=== PATIENT | female | born 1990 | race Caucasian/White ===

== ENCOUNTER 2016-12-08 13:51 | Emergency (ER) | payer OTHER ==
[~2016-12-08 13:51] MED LIST: BIRTH CONTROL PILL PO; FLEXERIL10 MG PO; ORUDIS75 M1 PO; VISTARIL PO; VOLTAREN75 MG PO
== END 2016-12-08 14:00 | disposition home or self-care (01) ==
LOC: CFTX 13:51
DX: H10.9 Unspecified conjunctivitis (principal); S05.01XA Injury of conjunctiva and corneal abrasion without foreign body, right eye, initial encounter; Z88.0 Allergy status to penicillin; F17.210 Nicotine dependence, cigarettes, uncomplicated; X58.XXXA Exposure to other specified factors, initial encounter
CPT/HCPCS: 96372; 99283; J1885

== ENCOUNTER 2016-12-19 15:38 | Inpatient (IN) | payer OTHER ==
--- NOTE | ~2016-12-19 | OR ---
Unit #: [id number] #: [id number] Patient: KRISTI GARRISON [id number] [address] [place], [place] [address] [id number] I MR#: [id number] NAME: KRISTI GARRISON. ROOM: 452 Date of Procedure: 12/20/2016 Admission Date: 12/19/2016 Surgeon: Johnnie Al M.D. : 1990 Attending Physician: Johnnie Al M.D. OPERATIVE REPORT PREOPERATIVE DIAGNOSIS Right femoral neck fracture. POSTOPERATIVE DIAGNOSIS Right femoral neck fracture. PROCEDURE PERFORMED Percutaneous pinning, right femoral neck fracture. RADIOLOGY ASST None. ANESTHESIA General with LMA. COMPLICATIONS None. SPECIMENS None. DRAINS None. SURGICAL IMPLANTS Three Marita 6.5 mm stainless steel partially threaded cannulated screws. INDICATION FOR PROCEDURE Kristi is a 26-year-old female, who presented to the emergency room last night after falling and injuring her right hip. In the emergency room, x-rays were taken regarding a fracture of the femoral neck that was nondisplaced. There is about 1 mm opening on the superior side of the femoral neck, but no displacement on AP and lateral of the calcar. Based on these findings, it was felt she would benefit from percutaneous pinning of the hip. She was added on for surgery. The risks, benefits, and alternatives of surgery were discussed with the patient. Informed consent was obtained. Risks include, but not limited to, infection, bleeding, nerve injury, blood clots, risks associated with anesthesia, avascular necrosis, need for further surgery, and possibly . The patient reports a several week history of right groin and thigh pain that she attributed to sciatica. The patient denied any true injury. Unit #: [id number] #: [id number] Patient: KRISTI GARRISON DESCRIPTION OF PROCEDURE On 12/20/2016, the patient was seen in preoperative holding area, where her surgical site was marked. Preoperative antibiotics were received. H and P and consent updated. She was taken to the operating room and provided general anesthesia. She was carefully moved to the fracture table. Right leg placed carefully in the boot for traction. Fluoroscopy confirmed that the fracture was still nondisplaced. The right hip was then prepped and draped in typical sterile fashion. Time-out performed confirming the correct surgical site and procedure. At this point, a 1 inch incision was made just distal to the greater trochanter laterally. Incision was taken down through the skin and subcutaneous tissues. IT band was split. The partially threaded pin was placed along the inferior central portion of the calcar into the femoral head. Two more screws were placed both anterior and posterior to the central wire and superior creating an inverted triangle using standard AO technique. The lengths were measured followed by cannulated drill over the lateral cortex. At this point, the 3 screws were placed with the threads medial to the fracture line. Fracture remained nondisplaced. At this point, all instruments were removed. Final AP and lateral images were taken confirming appropriate reduction of fracture placement of hardware. The wound was thoroughly irrigated. Subcutaneous tissues and skin closed with 2-0 Vicryl suture. Steri-Strips, 4x4, Tegaderm were placed. The patient was subsequently awakened from general anesthesia in stable condition and taken to PACU postoperatively. POSTOPERATIVE PLAN The patient will be toe-touch weightbearing and physical therapy. She will have standard 24 hour antibiotic protocol. She will have SCDs and be on Lovenox for 2 weeks for DVT prophylaxis. No complications encountered during the surgical procedure. Dictated by... Johnnie Al M.D. EMILY/el TD: 12/21/2016 02:24 JOB #: [id number] OPERATIVE REPORT Page 1 of 1 X X PROCEDURE OPERATIVE NOTE
--- NOTE | ~2016-12-19 | CR151 ---
[facility] A Service of [facility] & [facility] RADIOLOGY TEXT RESULTS PATIENT: KRISTI GARRISON LOCATION: [place] [address]- : [birth year] UNIT #: [id number] AGE: [address]: Johnnie Al MD SEX: F ORDER DR: [id number] [facility] [address] [facility]. [place], [place] [address] [id number] I MR#: [id number] Acc #: [id number] NAME: KRISTI GARRISON. : 1990 SEX: F STUDY DATE/TIME: 12/20/2016 UNIT: [facility] ROOM: [facility] STUDY DESCRIPTION: CR Hip Min 2 Views Rt Attending Physician: Johnnie Al M.D. Ordering Physician: Johnnie Al M.D. Primary Care Physician: No Primary Care Physician MEDICAL IMAGING REPORT This report is preliminary unless electronic signature is present EXAM Right hip intraoperative views 12/20/2016 0802 hours. HISTORY 26-year-old with history of right femoral neck fracture, intraoperative views demonstrating ORIF. Fluoroscopy time 1 minute, 9 seconds. FINDINGS 2 intraoperative views; AP and lateral view of the right hip are submitted. Dose is not recorded on the image. There are 3 bone screws traversing from the lateral intertrochanteric region terminating in the femoral head with anatomic alignment. IMPRESSION Intraoperative views demonstrate placement of 3 bone screws through the proximal right femur with tips terminating in the femoral head. Fracture is in anatomic alignment. Dictated by... Josiane Kay M.D. THIS IS AN ELECTRONICALLY VERIFIED REPORT Josiane Kay M.D. at 12/20/2016 2:26 PM AFTAB/bentley TD: 12/20/2016 13:29 JOB #: [id number] MEDICAL IMAGING REPORT Page 1 of 1 COPY
--- NOTE | ~2016-12-19 | CR151 ---
[facility] A Service of [facility] & [facility] RADIOLOGY TEXT RESULTS PATIENT: KRISTI GARRISON LOCATION: [facility] [id number] : [birth year] UNIT #: [id number] AGE: [address]: Johnnie Al MD SEX: F ORDER DR: [id number] [facility] [address]. [place], [place] [address] [id number] I MR#: [id number] Acc #: [id number] NAME: KRISTI GARRISON. : 1990 SEX: F STUDY DATE/TIME: 12/19/2016 16:37 UNIT: [facility] ROOM: [facility] STUDY DESCRIPTION: CR Hip Min 2 Views Rt Attending Physician: Johnnie Al M.D. Ordering Physician: Valeriano Judge M.D. Primary Care Physician: Primary Care Physician No MEDICAL IMAGING REPORT This report is preliminary unless electronic signature is present EXAM Right hip and pelvis HISTORY Patient fell today and has pain right hip and femur. History of sciatica. COMMENT Frontal view of the pelvis, frog-leg view of the right hip reviewed. There is a incomplete appearing fracture at the base of the right femoral neck. It is about 2 mm displaced superiorly and probably nondisplaced inferiorly. Femoral head is located. It appears acute and findings called by myself to Dominga in the emergency room. No underlying lesion is appreciated. Stool overlies the sacrum. IMPRESSION This patient has a fracture at the base of the right femoral neck with about 2 mm of displacement superiorly and essentially nondisplacement or incomplete fracture inferiorly. The femoral head is located. Dictated by... Kenyetta Bhagat M.D. THIS IS AN ELECTRONICALLY VERIFIED REPORT Kenyetta Bhagat M.D. at 12/20/2016 3:39 PM JASON/ac TD: 12/20/2016 07:46 JOB #: [id number] MEDICAL IMAGING REPORT Page 1 of 1 COPY
--- NOTE | ~2016-12-19 | CR107 ---
[facility] A Service of [facility] & [facility] RADIOLOGY TEXT RESULTS PATIENT: KRISTI GARRISON LOCATION: [place] [address]- : [birth year] UNIT #: [id number] AGE: [address]: Johnnie Al MD SEX: F ORDER DR: [id number] [facility] [address] [address] [facility]. [place], [place] [address] [id number] I MR#: [id number] Acc #: [id number] NAME: KRISTI GARRISON. : 1990 SEX: F STUDY DATE/TIME: 12/19/2016 16:40 UNIT: [facility] ROOM: [facility] STUDY DESCRIPTION: CR Femur 2 Views Rt Attending Physician: Johnnie Al M.D. Ordering Physician: Ed Doctor [id number] [facility] Primary Care Physician: Primary Care Physician No MEDICAL IMAGING REPORT This report is preliminary unless electronic signature is present EXAM Right femur. HISTORY Trauma. Fell. Right femur pain today. COMMENT 4 films right femur obtained for a two-view study. Partly redemonstrated is a fracture at the base of the right femoral neck. On this view it appears to be minimally widened superiorly nondisplaced inferiorly. The femoral head is located. No additional femur fracture is identified. IMPRESSION Redemonstration of a fracture at the base of the femoral neck. Dictated by... Kenyetta Bhagat M.D. THIS IS AN ELECTRONICALLY VERIFIED REPORT Kenyetta Bhagat M.D. at 12/20/2016 3:39 PM Dori TD: 12/20/2016 07:29 JOB #: [id number] MEDICAL IMAGING REPORT Page 1 of 1 COPY
--- NOTE | ~2016-12-19 | DS ---
Unit #: [id number] #: [id number] Patient: KRISTI GARRISON [id number] [address] [address] [id number] I MR#: [id number] NAME: KRISTI GARRISON ROOM: 45 Age: 26 Sex: F Admission Date: 12/19/2016 : 1990 Discharge Date: 12/21/2016 Attending Physician: Johnnie Al M.D. Primary Care Physician: No Primary Care Physician DISCHARGE SUMMARY DISCHARGE DIAGNOSIS Right closed, nondisplaced femoral neck fracture, status post right hip percutaneous pinning. DISCHARGE MEDICATIONS 1. Lovenox 40 mg subcutaneous daily for two weeks from surgery. 2. Percocet 5/325 mg, one to two tablets p.o. q.4-6 hours p.r.n. pain, #50. 3. Ibuprofen p.r.n. DETAILS OF HOSPITAL STAY Kristi is a 26-year-old female who has had a month history of right hip pain. The patient thought it was just sciatica. She presented in the emergency room and was noted to have a fracture of the hip after falling. Orthopedics was contacted. It was felt she would benefits from ORIF. She tolerated well on the morning of 12/20/2016. She worked well with physical therapy. Pain was controlled. Labs were stable. It was felt she was stable for discharge for discharge on 12/21/2016 to home. DISPOSITION Home. DISCHARGE INSTRUCTIONS 1. The patient will be toe touch weight bearing on the right lower extremity. 2. She will take Lovenox for two weeks for DVT prophylaxis. 3. She will follow up in the office in 10-14 days. 4. She should call the office for any questions or concerns. Dictated by... Johnnie Al M.D. EMILY/erika TD: 12/21/2016 10:58 JOB #: [id number] Unit #: [id number] #: [id number] Patient: KRISTI GARRISON DISCHARGE SUMMARY Page 1 of 1 X X DISCHARGE SUMMARY
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
[2016-12-19 17:16] LABS: BASOPHIL% 0.6 % (0-2.5); EOSINOPHIL# 0.2 X10e3 (0-0.7); EOSINOPHIL% 2.2 % (0.0-7.0); HEMATOCRIT 43.8 % (35.0-45.0); HEMOGLOBIN 14.5 gm/dL (12.0-16.0); LYMPHOCYTE# 2.9 X10e3 (1.0-3.5); LYMPHOCYTE% 35.6 % (17.0-45.0); MEAN CELL VOLUME 91.5 FL (83-96); MEAN CORPUSCULAR HEMOGLOBIN 30.4 PG (28-34); MEAN CORPUSCULAR HGB CONC 33.2 g/dL (30-36); MEAN PLATELET VOLUME 8.7 FL (6.5-11.5); MONOCYTE# 0.9 X10e3 (0-1.0); MONOCYTE% 10.6 % (3.0-12.0); NEUTROPHIL# 4.2 X10e3 (1.5-7.1); PLATELET COUNT 286 X10e3 (140-420); RED BLOOD COUNT 4.79 X10e (3.90-5.30); RED CELL DISTRIBUTION WIDTH 13.6 % (11.0-15.5); WHITE BLOOD COUNT 8.2 X10e3 (4.0-10.5)
[2016-12-19 17:23] LABS: DIFF IND NO
[2016-12-19 17:42] LABS: BUN/CREATININE RATIO 8.88; CALCIUM SERUM 9.1 mg/dL (8.4-10.2); CREATININE SERUM 0.9 mg/dL (0.6-1.4); GLOM FILT RATE Estimated 89.6 mL/min (>60); POTASSIUM 3.8 mmol/L (3.5-5.1)
[2016-12-19] MEDS ORDERED: VOLTAREN75 MG PO (20:17)
[2016-12-19] MEDS ORDERED: IBUPROFEN M200 M1 PO (20:19)
[2016-12-19] MEDS ORDERED: TRAMADOL HCL50 M1 PO (20:19)
[2016-12-21 03:36] LABS: BASOPHIL# 0.1 X10e3 (0-0.3); BASOPHIL% 0.3 % (0-2.5); HEMATOCRIT 40.1 % (35.0-45.0); HEMOGLOBIN 13.2 gm/dL (12.0-16.0); LYMPHOCYTE# 1.7 X10e3 (1.0-3.5); LYMPHOCYTE% 8.8 % (17.0-45.0); MEAN CELL VOLUME 92.2 FL (83-96); MEAN CORPUSCULAR HEMOGLOBIN 30.3 PG (28-34); MEAN CORPUSCULAR HGB CONC 32.9 g/dL (30-36); MEAN PLATELET VOLUME 8.7 FL (6.5-11.5); MONOCYTE# 1.2 X10e3 (0-1.0); MONOCYTE% 6.1 % (3.0-12.0); NEUTROPHIL# 16.7 X10e3 (1.5-7.1); NEUTROPHIL% 84.8 % (40-75); PLATELET COUNT 303 X10e3 (140-420); RED BLOOD COUNT 4.35 X10e (3.90-5.30); RED CELL DISTRIBUTION WIDTH 13.4 % (11.0-15.5)
[2016-12-21 03:38] LABS: DIFF IND YES; WHITE BLOOD COUNT 19.7 X10e3 (4.0-10.5)
[2016-12-21 03:59] LABS: BUN/CREATININE RATIO 11.66; CALCIUM SERUM 9.3 mg/dL (8.4-10.2); CREATININE SERUM 0.6 mg/dL (0.6-1.4); GLOM FILT RATE Estimated 127.6 mL/min (>60); POTASSIUM 3.8 mmol/L (3.5-5.1)
[2016-12-21 04:06] LABS: ANISOCYTOSIS SL; PLATELET ESTIMATE NORMAL (NORMAL)
[2016-12-21] MEDS ORDERED: LOVENOX40 MG/0.4 INJ (12:48)
[2016-12-21] MEDS ORDERED: IBUPROFEN400 MG PO (12:50)
[2016-12-21] MEDS ORDERED: PERCOCET5/325 PO (12:52)
== END 2016-12-21 17:20 | disposition home health service (06) | DRG 482 ==
LOC: CFTX 15:38 → CED 15:38 → CFTX 16:23 → CEDOF 18:00 → CFTX 18:27 → C4B 18:52 → CEDOF 18:52 → C4B 12-21 17:20
PROVIDERS: Nurse Practitioner; Orthopaedic Surgery
PROC: 0QS634Z Reposition Right Upper Femur with Internal Fixation Device, Percutaneous Approach (ICD-10-PCS; principal; 2016-12-20 07:30)
DX: S72.001A Fracture of unspecified part of neck of right femur, initial encounter for closed fracture (principal); F17.210 Nicotine dependence, cigarettes, uncomplicated; Z88.0 Allergy status to penicillin; W18.30XA Fall on same level, unspecified, initial encounter; M54.30 Sciatica, unspecified side
CPT/HCPCS: 36415; 73502; 73552; 76001; 80048; 84703; 85025; 94760; 96374; 96375; 97110; 97116; 97161; 97530; 99285; C1713; J1100; J1170; J1650; J1885; J2060; J2250; J2270; J2405; J3010; J3370

== ENCOUNTER 2017-03-25 13:08 | Emergency (ER) | payer OTHER ==
[~2017-03-25 13:08] MED LIST changes: +IBUPROFEN M200 M1 PO; +IBUPROFEN400 MG PO; +LOVENOX40 MG/0.4 INJ; +PERCOCET5/325 PO; +TRAMADOL HCL50 M1 PO
[2017-03-25] MEDS ORDERED: VICODIN PO (13:15)
[2017-03-25] MEDS ORDERED: MOTRIN PO (13:16)
== END 2017-03-25 14:27 | disposition home or self-care (01) ==
LOC: SED 13:08
DX: S05.02XA Injury of conjunctiva and corneal abrasion without foreign body, left eye, initial encounter (principal); T20.16XA Burn of first degree of forehead and cheek, initial encounter; T22.10XA Burn of first degree of shoulder and upper limb, except wrist and hand, unspecified site, initial encounter; T31.0 Burns involving less than 10% of body surface; F32.9 Major depressive disorder, single episode, unspecified; F17.210 Nicotine dependence, cigarettes, uncomplicated; Z79.899 Other long term (current) drug therapy; Z88.0 Allergy status to penicillin; X10.2XXA Contact with fats and cooking oils, initial encounter; Y92.009 Unspecified place in unspecified non-institutional (private) residence as the place of occurrence of the external cause
CPT/HCPCS: 99283